=== PATIENT | female | born 1935 | race Caucasian/White ===

== ENCOUNTER 2025-03-05 11:26 | Outpatient (OUT) | payer MEDICARE, OTHER, SELFPAY ==
--- OUTSIDE RECORDS SUMMARY | 2022-10-15 05:30 | XMS_ITS | Continuity of Care Document ---
[facility] Address [address] [place] [address] Phone Care Team Providers Care Wire Setter Name Role Phone Jim Murray WHARTON Unavailable Unavail able Allergies, Adverse Reactions, Alerts Substance Reaction Status Criticality codeine Skin irritation Active No Informati on Medications Medication Instructions Dosage Effective Dates (start - stop) Status Comments triamterene 37.5 mg-hydrochlorothiazi de 25 mg tablet take 1 tablet by oral route every day 1.00 tablet - Active Nexium 40 mg capsule,delayed release take 1 capsule by oral route every day 40 MG - Active Lipitor 10 mg tablet take 1 tablet by oral route every day 10 MG - Active allopurinol 100 mg tablet take 1 tablet by oral route every day 100 MG - Active Metopirone 250 mg capsule - Active aspirin 81 mg chewable tablet chew 1 tablet by oral route every day 81 MG - Active metformin 500 mg tablet take 1 tablet by oral route 2 times every day with morning and evening meals 500 MG - Active Lasix 20 mg tablet take 1 tablet by oral route every day 20 MG - Active Glucosamine 500 mg tablet - Active Procedures Procedure Date Extraction Surgical/erupt Tooth 023 Intraoral-periapical 1st Film 9 Extraction Surgical/erupt Tooth 019 Limited Oral Eval ZOSTER VACC, SC OFFICE/OUTPATIENT VISIT, EST IMMUNIZATION ADMIN ZOSTER VACC, SC Advance Directives Directive Yes / No Effective Date File Name No Information Encounters Encounter Description Practice Location Reason(s) For Visit Diagnoses Date Provider Providers Copied on [facility]counter [facility] [address], [place], [id number], tel:[phone] Dental Clinic consult (chief complaint) Encounter for screening for dental disorders 3 Jim Gao. [address], [place], [id number], [place]. tel:[phone] [facility], [address], [place], [id number], [place] tel:[phone] Dental Clinic Ext#6 (chief complaint) Encounter for screening for dental disorders 9 Kareen Beltranald. [address] [place], [place], [id number], [place]. tel:[phone] OFFICE/OUTPAT IENT VISIT, EST [facility], [address] [place] [address], [id number], tel:[phone] [facility] Need for prophylactic vaccination and inoculation, other viral diseases 3 Cliff Armstrong. [address], [place], [id number], [place]. tel:[phone] Family History Family Member Type Diagnosis Age At Onset Father Problem (finding) prostate cancer Mother Problem (finding) Mother Problem (finding) Family history unknown Immunizations Vaccine Date Status Comments Zoster administered Source: [facility] unization Record Payers Payer name Insurance type Covered green party ID Authoriza tion(s) Self Pay Cap [id number] Social History Type Description Quantity Date Captured Comments Alcohol Use Details Unknown Caffeine Use Details Unknown Tobacco Use Status No Information Smoking Status Former smoker Smoking Tobacco Use Details Cigarette: Years Used 30 Cigarette: No Details Available Sex Female Sexual Orientation Straight or heterosexual Gender Identity Female Vital Signs Date / Time: Height Weight BMI Pulse Rate Blood Pressure Temperature Respiratory Rate Body Surface Area Head Circumference Head Circ. Percentile Wt./[place]le[place]r. Percentile BMI percentile Pulse Ox Inhaled Ox 9:39 AM 76 /min 124/69 mm[Hg] 98.00 F Chief Complaint And Reason For Visit From encounter dated '2022 09:30'. consult (chief complaint) Reason For Referral Reason For Referral No Information Plan Of Treatment Date Type Action Status Goal Tdap. Due on due Goal Depression screening. Due on due Goal Influenza vaccine. Due on due Goal Zoster vaccine (1st). Due on due Goal PRAPARE ASSESSMENT. Due on J due History Of Present Illness Encounter Date Complaint History Of Prese nt Illness consult Ext#6 Ext#6 Functional Status Date Functional Assessmen t No Information Instructions Date Instruction Additional Infor mation No Information Assessments Type Assessment Date assessment Encounter for screening for dent al disorders Patient Care Teams Name Effective Dates (start - stop) Status Members No Information
--- OUTSIDE RECORDS SUMMARY | 2025-03-05 11:28 | XMS_ITS | Clinical Summary ---
Author Organization [facility] Address [address] [place] [address] Phone Care Team Providers Care Director Supply Chain Name Role Phone Unavailable Primary Care Provider Unavailabl e Social History Tobacco Use Types Packs/Day Years Used Date Smoking Tobacco: Never Assessed Comments Unknown Sex and Gender Information Value Date Recorded Sex Assigned at Not on file Legal Sex Female 3:43 PM EST Gender Identity Not on file Sexual Orientation Not on file Plan of Treatment Health Maintenance Due Date Last Done Comments Bone Density Scan 1935 Lipid Panel 1935 Yearly Adult Physical 1935 DTaP/Tdap/Td Vaccines (1 - Tdap) 1959 Pneumococcal Vaccine (1 of 1 - PCV) 1987 Zoster Vaccines (1 of 2) 1987 RSV High Risk: (Elderly (60+ ) or Population) (1 - 1-dose 75+ series) 2012 COVID-19 Vaccine ( - 2023-2 5 season) 2024 Influenza Vaccine (Season Ended) 2025 HIB Vaccines Aged Out No longer eligi ble based on patient's age to complete this topic HPV Vaccines Aged Out No longer eligi ble based on patient's age to complete this topic Hepatitis A Vaccines Aged Out No long er eligible based on patient's age to complete this topic Hepatitis B Vaccines Aged Out No long er eligible based on patient's age to complete this topic IPV Vaccines Aged Out No longer eligi ble based on patient's age to complete this topic Meningococcal Vaccine Aged Out No ivy jenae eligible based on patient's age to complete this topic Rotavirus Vaccines Aged Out No longer eligible based on patient's age to complete this topic
[2025-03-05 12:02] LABS: Hematocrit 34.9 % (36.0-48.0); Mean Corpuscular HGB Conc 31.5 g/dL (29.9-35.2); Mean Corpuscular Hemoglobin 29.3 pg (26.7-34.0); Mean Corpuscular Volume 93.1 fL (81.0-99.0); Mean Platelet Volume 9.5 fL (9.5-13.5); Platelet Count 319 10^3/uL (150-450); Red Blood Count 3.75 10^6/uL (4.20-5.40); Red Cell Distribution Width 15.3 % (11.0-15.0)
[2025-03-05 12:03] LABS: Bilirubin Urine NEGATIVE (NEGATIVE); Blood Urine NEGATIVE (NEGATIVE); Clarity Urine CLEAR (CLEAR); Color Urine YELLOW (YELLOW); Glucose Urine UA NEGATIVE (NEGATIVE); Ketones Urine NEGATIVE (NEGATIVE); Leukocyte Esterase Urine TRACE (NEGATIVE); Nitrite Urine NEGATIVE (NEGATIVE); Protein Urine NEGATIVE (NEG/TRACE); Urobilinogen Urine 0.2 EU/dL (0.2-1.0); pH Urine 5.5 (5.0-9.0)
[2025-03-05 12:05] LABS: Creatinine Urine Random 62.13 mg/dL (20.00-300.00); Microalbum Creatinine Ratio Ur 20.9 mg/g (0.0-29.9); Microalbumin Urine Random <1.3 mg/dL (<=30.0); Protein Creatinine Ratio Urine 0.14
[2025-03-05 12:15] LABS: Albumin Level 3.1 g/dL (3.4-5.0); Anion Gap 11.5; BUN Creatinine Ratio 21.6; Calcium 10.1 mg/dL (8.5-10.1); Carbon Dioxide 29.6 mmol/L (21.0-32.0); Chloride 103 mmol/L (98-107); Estimated GFR (African America 30 (>=60 mL/min/1.73m^2); Estimated GFR (Non-African Ame 24 (>=60 mL/min/1.73m^2); Glucose 118 mg/dL (74-106); Magnesium 2.2 mg/dL (1.8-2.4); Phosphorus 3.4 mg/dL (2.6-4.7); Potassium 4.1 mmol/L (3.5-5.1); Sodium 140 mmol/L (136-145); Uric Acid 7.1 mg/dL (2.6-6.0)
[2025-03-06 11:10] LABS: PTH, Intact 82 pg/mL (15-65)
== END 2025-03-05 11:27 | disposition home or self-care (01) ==
LOC: LAB 11:26
PROVIDERS: PCP Internal Medicine; Visit Provider Internal Medicine Nephrology
DX: I12.9 Hypertensive chronic kidney disease with stage 1 through stage 4 chronic kidney disease, or unspecified chronic kidney disease (principal); N18.4 Chronic kidney disease, stage 4 (severe); M10.9 Gout, unspecified; E11.21 Type 2 diabetes mellitus with diabetic nephropathy; N18.9 Chronic kidney disease, unspecified; D63.1 Anemia in chronic kidney disease
CPT/HCPCS: 36415; 80069; 81003; 82043; 82306; 82570; 83735; 83970; 84156; 84550; 85027

== ENCOUNTER 2025-03-07 09:17 | Outpatient (OUT) | payer MEDICARE, OTHER, SELFPAY ==
--- OUTSIDE RECORDS SUMMARY | 2025-03-07 09:20 | XMS_ITS | Clinical Summary ---
Author Organization [facility] Address [address] [place] [address] Phone Care Team Providers Care Gas Appliance Repairer Name Role Phone Unavailable Primary Care Provider [...]
--- NOTE | 2025-03-07 09:22 | US_ITS ---
The [address] [address] Patient Name: GORGE ROMERO MRN: [id number] date: 1935 Sex: F Assigned Patient Location: [place] Current Patient Location: [place] Accession/Order Number: [id number] Exam Date: 03/07/2025 10:20 Report Date: 03/07/2025 10:23 At the request of: VÍCTOR KAHN Procedure: US renal BI BILATERAL RENAL AND BLADDER ULTRASOUND CLINICAL HISTORY: Stage 4 Chronic Kidney Disease COMPARISON: None Estimation of renal size is approximately 8.8 cm on the right and 9.6 cm on the left. No shadowing calculi or hydronephrosis are identified. A small exophytic cyst is visualized at the inferior pole of the left kidney measuring 11 mm in size. There is also a potential second cyst at the superior pole measuring 12 x 14 x 13 mm. There is no perinephric fluid. The urinary bladder is poorly distended with a volume of 13 mL. This limits evaluation. IMPRESSION: SUSPECTED SMALL LEFT RENAL CYSTS. NO OBSTRUCTIVE UROPATHY. Impression dictated by: Audrey Dominguez M.D. 03/07/2025 10:23 AM Dictation Location: [place] [address] Electronically authenticated by: [id number] Date: 03/07/2025 10:23
== END 2025-03-07 09:18 | disposition home or self-care (01) ==
LOC: US 09:18
PROVIDERS: PCP Internal Medicine; Visit Provider Internal Medicine Nephrology
DX: M10.9 Gout, unspecified (principal); E11.21 Type 2 diabetes mellitus with diabetic nephropathy; I12.9 Hypertensive chronic kidney disease with stage 1 through stage 4 chronic kidney disease, or unspecified chronic kidney disease; N18.9 Chronic kidney disease, unspecified; D63.1 Anemia in chronic kidney disease; N18.4 Chronic kidney disease, stage 4 (severe)
CPT/HCPCS: 76775

== ENCOUNTER 2025-07-10 13:07 | Outpatient (OUT) | payer MEDICARE, OTHER, SELFPAY ==
[2025-07-10 13:42] LABS: Hematocrit 34.5 % (36.0-48.0); Hemoglobin 11.1 g/dL (12.0-16.0); Mean Corpuscular HGB Conc 32.2 g/dL (29.9-35.2); Mean Corpuscular Hemoglobin 29.6 pg (26.7-34.0); Mean Corpuscular Volume 92.0 fL (81.0-99.0); Platelet Count 291 10^3/uL (150-450); Red Blood Count 3.75 10^6/uL (4.20-5.40); White Blood Count 9.6 10^3/uL (4.0-11.0)
[2025-07-10 13:48] LABS: Glucose Urine UA NEGATIVE (NEGATIVE)
[2025-07-10 14:31] LABS: Total Protein Urine Random <6.0 mg/dL (<=11.9)
[2025-07-10 14:33] LABS: Albumin Level 3.4 g/dL (3.4-5.0); Anion Gap 11.9; Blood Urea Nitrogen 47.0 mg/dL (7.0-18.0); Calcium 9.7 mg/dL (8.5-10.1); Carbon Dioxide 29.5 mmol/L (21.0-32.0); Chloride 102 mmol/L (98-107); Estimated GFR (African America 34 (>=60 mL/min/1.73m^2); Estimated GFR (Non-African Ame 28 (>=60 mL/min/1.73m^2); Glucose 97 mg/dL (74-106); Magnesium 2.1 mg/dL (1.8-2.4); Potassium 4.4 mmol/L (3.5-5.1); Sodium 139 mmol/L (136-145); Uric Acid 6.5 mg/dL (2.6-6.0)
== END 2025-07-10 13:08 | disposition home or self-care (01) ==
LOC: LAB 13:13
PROVIDERS: PCP Internal Medicine; Visit Provider Internal Medicine Nephrology
DX: E21.3 Hyperparathyroidism, unspecified (principal); M10.9 Gout, unspecified; E11.21 Type 2 diabetes mellitus with diabetic nephropathy; I12.9 Hypertensive chronic kidney disease with stage 1 through stage 4 chronic kidney disease, or unspecified chronic kidney disease; N18.9 Chronic kidney disease, unspecified; D63.1 Anemia in chronic kidney disease
CPT/HCPCS: 36415; 80069; 81003; 82306; 82570; 83735; 83970; 84156; 84550; 85027